=== PATIENT | female | born 1960 | race Caucasian/White ===

== ENCOUNTER → 2018-02-24 08:06 | Outpatient (CLI) | payer OTHER, SELFPAY ==
--- NOTE | 2018-02-24 08:07 | AS_ITS ---
Renal Arterial Duplex Indications: 405.91 Unspecified renovascular hypertension. 440.1 Atherosclerosis of renal artery. Stent right renal artery 2016. IMPRESSIONS 1. Normal bilateral renal artery evaluation. 2. Right RI elevated 0.8. Complete renal arterial duplex. Duplex scan and Doppler flow study including spectral analysis, color and smith scale imaging. Height: Height: 157.5cm. Height: 62in. Weight: Weight: 69.9kg. Weight: 153.7lb. Body mass index: BMI: 28.2kg/m^2. Body surface area: BSA: 1.77m^2. Location: Vascular laboratory. Patient status: Outpatient. Tables: Arterial flow: + +--------+--------+ Location V sys V ed + +--------+--------+ Right renal - proximal 150cm/s 28.2cm/s + +--------+--------+ Right renal - mid 166cm/s 52.4cm/s + +--------+--------+ Right renal - distal 117cm/s 34.1cm/s + +--------+--------+ Left renal - proximal 75.2cm/s 17.7cm/s + +--------+--------+ Left renal - mid 113cm/s 31.2cm/s + +--------+--------+ Left renal - distal 154cm/s 44.2cm/s + +--------+--------+ Renal anatomy: + +------+------+ Left Right + +------+------+ Long axis 10.5cm 9.72cm + +------+------+ Short axis 7.06cm 7.48cm + +------+------+ Cortical thickness 1.45cm 1.49cm + +------+------+ Velocity ratios: + +-----+ V sys + +-----+ Right renal/aortic 2.2 + +-----+ Left renal/aortic 2 + +-----+ (Report amended ) Electronically signed by: Dhaval Regan [id number]
--- NOTE | 2018-02-24 08:07 | CA_ITS ---
PROCEDURE: 2-D M-mode and color Doppler study INDICATIONS FOR THE TEST: Chest pain COPD Heart Murmur Tobacco Smoking Palpitations Fatigue Syncope Edema HypertensionXDiabetes Mellitus Rheumatic Fever SOBXDOE Obesity HyperlipidemiaX Family History HD Additional History CAD,[place]OR[place],STENT PATIENT INFORMATION HEIGHT: 62 WEIGHT:154 GENDER: Female B/P:172/92 2-D/M-MODE INTERPRETATION: 2-D MEASUREMENTS OBSERVED VALUES IN CMS Right Ventricular Dimension (RVDd) 2.6 Interventricular Septum (Thickness)(IVsd) 1.1 Left Ventricular Internal Dimensions(LVIDd) 4.7 Left Ventricular Posterior Wall (Thickness)(LVPWd) 1.1 Aortic Root 2.8 Aortic Cusp Separation 1.8 Left Atrial Dimensions (LAD) 2.9 2D 1. Left atrium is qualitatively mildly enlarged, left ventricle is normal size, mild concentric left ventricular hypertrophy, visually estimated ejection fraction 55% with no regional wall motion abnormality. 2. The right atrium and right ventricle are normal size and contractility. 3. The aortic valve is minimally thickened and fibrosed. 4. The mitral and tricuspid valvular grossly normal. 5. The pulmonic valve is poorly visualized. 6. No significant pericardial effusion noted. DOPPLER INTERROGATION: Doppler interrogation of the aortic, mitral and tricuspid valvular presence of mild mitral and tricuspid regurgitation, tricuspid regurgitation jet velocity is inadequate for calculation of the right ventricular systolic pressure, grade 1 diastolic dysfunction seen with tissue Doppler evidence of raised left atrial pressure. CONCLUSION: 1. Mildly enlarged left atrium, normal left ventricular size, mild concentric left ventricular hypertrophy, visually estimated ejection fraction of 55% with no regional wall motion abnormality, grade 1 diastolic dysfunction seen with tissue Doppler evidence of raised left atrial pressure. 2. Mild mitral and tricuspid regurgitation 3. No significant pericardial effusion noted.
== END ==
PROVIDERS: PCP Nurse Practitioner; Visit Provider Internal Medicine Cardiovascular Disease
DX: I10 Essential (primary) hypertension (principal); I70.1 Atherosclerosis of renal artery; E78.5 Hyperlipidemia, unspecified; G47.33 Obstructive sleep apnea (adult) (pediatric); H53.8 Other visual disturbances; R06.09 Other forms of dyspnea; R51 Headache
CPT/HCPCS: 93306; 93976

== ENCOUNTER → 2018-11-19 07:54 | Outpatient (CLI) | payer OTHER, SELFPAY ==
--- NOTE | 2018-11-19 | CA_ITS ---
APPROVED REPORT Exam: Pharmacologic Technologist: Zuleika Eldridge Ht: 5 ft 2 in Wt: 155 lbs BSA: 1.72 m2 HR: 60 bpm BP: 116/64 mmHg Indications: Shortness of Breath on Exertion, PreOP Medical History Medications: Amlodipine,,,,, Lorazepam,,,,, Levothyroxine,,,,, Aspirin,,,,, Gabapentin,,,,, Pantoprazole,,,,, Carvedilol,,,,, CloPIdogrel,,,,, PaROXETINE,,,,, Stress Test Details Test: LEXISCAN HR Resting HR: 63 bpm Max Heart Rate (APMHR): 160 bpm Max HR Achieved: 85 bpm Target HR (85% APMHR): 136 bpm % of APMHR: 53 Recovery HR: 63 bpm BP Resting BP: 116.0/64.0 mmHg Max BP: 116.0/64.0 mmHg Recovery BP: 110.0/64.0 mmHg ECG Clinical Exercise duration: 04:00 min Highest Stage Achieved: Exercise capacity: 1.0 METs Stress ECG Conclusion Resting ECG: Normal sinus rhythm Symptoms: Mild chest discomfort, shortness of air, stomach cramps, malaise Arrhythmias/Ectopy: None ST-T Changes: No significant changes. Conclusion: Unremarkable Lexiscan stress. Myoview images reported separately. Test Summary RECOVERY 07:00 . . 63 . 110/ 64 . . REST 01:56 . . 63 . 116/ 64 . . Stage 1 . . . . . . . Myoview Injected Stage 1 01:00 . . 78 . . . . Stage 2 01:00 . . 85 . 113/ 64 . . Stage 3 01:00 . . 83 . 111/ 62 . . Stage 4 01:00 . . 81 . 90/ 63 . Stop exercise at 04:00 RECOVERY 01:00 . . 78 . 100/ 64 . . RECOVERY 02:00 . . 76 . 100/ 64 . . RECOVERY . . . . . . . chest discomfort RECOVERY 03:00 . . 68 . 108/ 65 . . RECOVERY 04:00 . . 68 . 85/ 54 . . RECOVERY 05:00 . . 66 . 100/ 59 . . RECOVERY 06:00 . . 66 . 99/ 63 . . RECOVERY 07:00 . . 63 . 110/ 64 . . RECOVERY 07:20 . . 66 . 110/ 64 . . Electronically signed by : Jv Lewis, 11/19/2018 20:53:39
--- NOTE | 2018-11-19 07:56 | NM_ITS ---
APPROVED REPORT Exam: Nuclear Stress Test Indication: pre-op, sob, htn Patient Location: Outpatient Stress Tech: Zuleika Eldridge [place] Tech:Sanjuanita PradoGAEL RT(R)(N) Ht: 5 ft 2 in Wt: 155 lbs Bra Size: 36c HR: 60 bpm BP: 116/64 mmHg BSA: 1.72 m2 BMI: 28.3 History: pre-op, sob, htn Procedure: Patient received a 0.4 mg of intravenous Lexiscan, resting heart rate 60 bpm, resting blood pressure 116/64 mmHg, with Lexiscan maximum heart rate achived was 85 bpm which is Less than 85 % of the maximum predicted heart rate and blood pressure was 113/64 mmHg. mild chest discomfort Electrocardiogram Resting electrocardiogram showed sinus rhythm, with Lexiscan there is less than 1.[address] segment depression noted from the baseline EKG. The EKG portion of the Lexiscan Myoview is nondiagnostic. Cardiac Stress and Resting SPECT Images: Cardiac Stress and Resting SPECT images were obtained using technetium 99m Myoview 30.0 mCi stress and 10.37 mCi at rest. Gated SPECT with analysis of segmental wall motion and calculation of the ejection fraction also done. Cardiac stress and resting SPECT images show uniform myocardial activity without segmental perfusion abnormality, computer derived ejection fraction is over 65% with no regional wall motion abnormality, right ventricle is normal size and contractility. Conclusion: 1. The EKG portion of the Lexiscan Myoview is nondiagnostic. 2. No scintigraphic evidence of reversible ischemia seen, computer derived ejection fraction is over 65% with no regional wall motion abnormality, right ventricle is normal size and contractility. 3. Normal Lexiscan Myoview study. Electronically signed by : Jv Lewis, 11/19/2018 20:55:28
== END ==
PROVIDERS: PCP Nurse Practitioner; Visit Provider Physician Assistant
DX: Z01.810 Encounter for preprocedural cardiovascular examination (principal); E78.5 Hyperlipidemia, unspecified; I10 Essential (primary) hypertension; I51.89 Other ill-defined heart diseases; I70.1 Atherosclerosis of renal artery; I73.9 Peripheral vascular disease, unspecified; I77.3 Arterial fibromuscular dysplasia
CPT/HCPCS: 78452; 93017; A9502; J2785

== ENCOUNTER → 2021-03-06 12:28 | Outpatient (CLI) | payer OTHER, SELFPAY ==
[2021-03-06 12:57] LABS: Basophils # 0.1 K/mm3 (0-0.2); Basophils % 1.6 % (0.1-2.0); Eosinophils # 0.3 K/mm3 (0.0-0.4); Eosinophils % 4.4 % (0.1-12.0); Hematocrit 42.6 % (37.0-47.0); Hemoglobin 13.4 g/dL (12.2-16.2); Lymphocytes # 1.4 K/mm3 (0.7-4.5); Lymphocytes % 23.6 % (10-50); Mean Corpuscular HGB Conc 31.5 g/dL (31.8-35.4); Mean Corpuscular Hemoglobin 30.5 pg (27.0-31.2); Mean Platelet Volume 8.2 fl (7.4-10.4); Monocytes # 0.2 K/mm3 (0.1-1.0); Monocytes % 3.5 % (1.7-9.3); Neutrophils % 66.9 % (37.0-80.0); Platelet Count 244 K/mm3 (142-424); Red Cell Distribution Width 14.2 % (11.5-17.5)
[2021-03-06 13:36] LABS: Alanine Aminotransferase 12 U/L (12-78); Albumin Level 2.9 g/dl (3.5-5.0); Alkaline Phosphatase 95 U/L (38-126); Anion Gap 5.8 mEq/L (5-15); Aspartate Amino Transferase 23 U/L (14-36); Bilirubin,Indirect 0.3 mg/dL (0.0-0.9); Bilirubin,Total 0.3 mg/dl (0.2-1.3); Bilirubin,Unconjugated 0.2 mg/dL (0.0-1.1); Blood Urea Nitrogen 6 mg/dl (7-17); Calcium 8.2 mg/dl (8.4-10.2); Carbon Dioxide 30 mmol/L (22.0-30.0); Chloride 107 mmol/L (98-107); Cholesterol 148 mg/dl (140-200); Estimated Glomerular Filt Rate 101 ml/min (>60); GFR (African American) 123 ML/MIN (>60); Glucose 76 mg/dl (74-100); HDL Cholesterol 50 mg/dl (40-60); Potassium 3.8 mmoL/L (3.5-5.1); Sodium 139 mmol/L (136-145); Total Protein,Serum 4.8 g/dl (6.3-8.2); Triglycerides 167 mg/dl (30-150); VLDL Cholesterol 33 mg/dL (0-40)
--- NOTE | 2021-03-06 13:37 | CT_ITS ---
FINAL REPORT TECHNIQUE: Pre-and postcontrast images of the abdomen were performed by computed tomography. Extensive 3-D reconstruction images were performed. A CTA was performed. This study was performed with techniques to keep radiation doses as low as reasonably achievable (ALARA). Individualized dose reduction techniques using automated exposure control or adjustment of mA and/or kV according to the patient''s size were employed. CLINICAL HISTORY: wt loss/abdominal pain FINDINGS: ABDOMEN: The lung bases are clear. Precontrast images demonstrate no evidence of nephrolithiasis. Gallbladder is present. No adrenal masses are identified. The liver, spleen and pancreas are unremarkable. There is moderate fluid throughout the colon. CTA: The abdominal aorta is proper caliber. There is abnormal calcification at the origin of the celiac axis. The SMA and JUSTIN are patent. There is no significant stenosis or calcification. There is a right renal artery stent which appears patent. Calcification is seen at the origin of the left renal artery which appears patent. IMPRESSION: Abnormal calcification at the origin of the celiac axis. Patent right renal artery stent. Calcification at origin of patent left renal artery. Reviewed, Interpreted and Dictated by Yousuf Hall MD Transcribed by Pallavi Mcfarland Authenticated by Yousuf Hall MD on 03/06/2021 04:06:49 PM [facility]
[2021-03-06 13:47] LABS: Direct LDL Cholesterol 72.03 mg/dL (100-129)
[2021-03-06 13:54] LABS: Free T4 (Free Thyroxine) 0.88 ng/dl (0.78-2.19)
[2021-03-06 14:07] LABS: Thyroid Stimulating Hormone 4.53 uIU/mL (0.465-4.68)
== END ==
PROVIDERS: PCP Nurse Practitioner; Visit Provider Internal Medicine
DX: R10.9 Unspecified abdominal pain (principal); R63.4 Abnormal weight loss; I10 Essential (primary) hypertension; I51.89 Other ill-defined heart diseases; I70.1 Atherosclerosis of renal artery; I73.9 Peripheral vascular disease, unspecified; I77.3 Arterial fibromuscular dysplasia; E78.49 Other hyperlipidemia
CPT/HCPCS: 36415; 74175; 80048; 80061; 80076; 84439; 84443; 85025; Q9967

== ENCOUNTER → 2021-03-08 12:10 | Outpatient (CLI) | payer OTHER, SELFPAY | PROVIDERS: PCP Nurse Practitioner; Visit Provider Internal Medicine | DX: Z01.812 Encounter for preprocedural laboratory examination (principal); Z11.52 Encounter for screening for COVID-19; I10 Essential (primary) hypertension; I51.89 Other ill-defined heart diseases; E78.49 Other hyperlipidemia; I70.1 Atherosclerosis of renal artery; I73.9 Peripheral vascular disease, unspecified; I77.1 Stricture of artery; I77.3 Arterial fibromuscular dysplasia; K52.9 Noninfective gastroenteritis and colitis, unspecified; R10.84 Generalized abdominal pain; R63.4 Abnormal weight loss | CPT/HCPCS: C9803; U0003; U0005 ==

== ENCOUNTER 2021-03-09 08:28 | Day surgery (SDC) | payer OTHER, SELFPAY ==
[2021-03-09] VITALS (11 sets, daily range): BP systolic 106–145; BP diastolic 40–96; PULSE 59–78; RESP 16–20; TEMP 36.4–36.9; O2SAT 92–98; BMI 23.9
--- NOTE | 2021-03-09 07:05 | IR_ITS ---
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 COMPLICATIONS None Estimated Blood Loss: Less than 10 mls TECHNIQUE 1% lidocaine used to anesthetize the right anterior aspect of the right wrist. The right radial artery was accessed via the central technique and an arterial cocktail using 5000U heparin, 2.5 mg verapamil, 1mg lidocaine and 800mcg nitroglycerin into the right radial sheath intra-arterially. A 23 cm hydrophilic sheath was then used to to the small artery not readily excepting the multipurpose catheter. After the long sheath was placed a multipurpose catheter was used to perform selective angiography of the SMA celiac artery and bilateral renal arteries. 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 Standard therapy for ischemic vascular disease with avoidance of tobacco products and risk factor modification Electronically signed by : Andre Sanford MD 03/09/2021 12:13:13
== END 2021-03-09 13:55 | disposition home or self-care (01) ==
LOC: CATHLAB 08:30
PROVIDERS: PCP Nurse Practitioner; Visit Provider Internal Medicine
DX: I70.1 Atherosclerosis of renal artery (principal); I77.1 Stricture of artery; I10 Essential (primary) hypertension; Z95.5 Presence of coronary angioplasty implant and graft; E78.49 Other hyperlipidemia; I73.9 Peripheral vascular disease, unspecified; I77.3 Arterial fibromuscular dysplasia; R10.84 Generalized abdominal pain; R93.5 Abnormal findings on diagnostic imaging of other abdominal regions, including retroperitoneum
CPT/HCPCS: 36245; 36252; 75726; 99152; 99153; C1725; C1769; J1644; Q9967

== ENCOUNTER → 2022-02-23 11:01 | Outpatient (CLI) | payer OTHER, SELFPAY ==
--- NOTE | 2022-02-23 11:11 | CA_ITS ---
APPROVED REPORT EXAM: Comprehensive 2D, Doppler, and color-flow Echocardiogram Pediatric Neuropsychologist: Chantel Oropeza RT(R) Ht: 5 ft 2 in Wt: 160lbs BSA: 1.74 BP: 107/58 mmHg Indications: CP, fatigue, HTN, SOB, hyperlipidemia, SOB, PAD, PVD, DD, HTN. 2D Dimensions LVOT 1.96 cm (M/F) 1.5-2.5 LA Volume 20.80 mL LA Volume Index 11.95 mL/m2 (M/F) 16-34 M-Mode Dimensions RVDd 2.50 cm (0.9-2.6) LA Diam 3.44 cm (1.9-4.0) LVDd 4.94 cm (3.5-5.7) Ao Diam 2.58 cm (2.0-3.7) LVDs 3.69 cm (3.5-5.7) IVSd 0.54 cm (0.6-1.1) PWd 0.86 cm (0.6-1.1) EF (Teich) 49.70% FS 25.30% EDV (Teich) 115.00 mL ESV (Teich) 57.80 mL LV Diastology E Decel Time 213.00 (160-240 msec) E/A Ratio 1.0 MED E' 6.50 (< 7 cm/sec) E'/MED E' Ratio 12.15 (>14) LAT E' 4.70 (<10 cm/sec) E/LAT E' Ratio 16.81 (>14) Mitral Valve MV E Max Craig. 79.00 (40-130 cm/s) MV A Velocity 82.00 (40-130 cm/s) E/A Ratio 0.97 MV Decel. Time 213.00 (160-240 ms) MV PHT 62.00 ms Left Ventricle Left atrium is mildly enlarged, left ventricle is normal size mild concentric left ventricular hypertrophy, estimated ejection fraction 55% with no regional wall motion abnormality, grade 1 diastolic dysfunction seen without tissue Doppler evidence of reduced left atrial pressure. Right Ventricle Right atrium and right ventricle are normal size and contractility. Aortic Valve Aortic valve is minimally thickened and fibrosed there is no aortic stenosis aortic insufficiency. Mitral Valve Mitral valve is grossly normal, there is trace mitral regurgitation. Tricuspid Valve Tricuspid grossly normal, there is trace tricuspid regurgitation, tricuspid regurgitation jet velocity is inadequate for calculation of the right ventricular systolic pressure. Pulmonic Valve Pulmonic valve is poorly visualized. Great Vessels Aortic root is normal size. Inferior vena cava is normal size with normal inspiratory collapse. Pericardium No significant pericardial effusion noted. Conclusion 1. In the left atrium, normal left ventricular size mild concentric left ventricular hypertrophy, estimated ejection fraction 55% with no regional wall motion abnormality, grade 1 diastolic dysfunction seen without tissue Doppler evidence of raise left atrial pressure. 2. Trace mitral and tricuspid regurgitation. 3. No significant pericardial effusion. 4. Inferior vena cava is normal size with normal inspiratory collapse. Electronically signed by : Jv Lewis MD 02/23/2022 13:41:11
--- NOTE | 2022-02-23 11:42 | CA_ITS ---
APPROVED REPORT Exam: Pharmacologic Technologist: Camille Fair, Ht: 5 ft 2 in Wt: 161 lbs BSA: 1.74 m2 HR: 66 bpm BP: 159/71 mmHg Rhythm: NSR Medical History Medical History: HTN, Hyperlipidemia Medications: Levothyroxine,,,,, Aspirin,,,,, Gabapentin,,,,, Losartan,,,,, Pantoprazole,,,,, Atorvastatin,,,,, CloPIdogrel,,,,, PaROXETINE,,,,, BisOPROLOL Fumarate,,,,, Budesonide,,,,, ClonAZapam,,,,, FOLONIC PLUS,,,,, Allergies: No known drug allergies Cardiac Risk Factors: HTN, Hyperlipidemia Stress Test Details Test: LEXISCAN HR Resting HR: 67 bpm Max Heart Rate (APMHR): 157.353597 bpm Max HR Achieved: 84 bpm Target HR (85% APMHR): 133.887873 bpm % of APMHR: 53.50 Recovery HR: 71 bpm BP Max BP: 162/72 mmHg Recovery BP: 161.0/71.0 mmHg ECG Resting ECG: NSR Clinical Reason for Termination: Completed Protocol Exercise duration: 04:01 min Highest Stage Achieved: Exercise capacity: 1.0 METs Stress ECG Conclusion PT UNABLE TO WALK BEYONG STAGE I. HIGH RISK FOR FALLING. SWITCHED TO LEXISCAN NO CP <1.[address] SEGMENT CHANGES NON-DIAGNOSTIC Test Summary REST 01:03 . . 67 . . . . Stage 1 01:00 . . 83 . . . . Stage 2 01:00 . . 80 . 157/ 71 . . Stage 3 01:00 . . 77 . 149/ 77 . . Stage 4 01:00 . . 73 . 162/ 72 . . Stage 4 01:01 . . 73 . 162/ 72 . Stop exercise at 04:01 RECOVERY 01:00 . . 72 . . . . RECOVERY 01:34 . . 71 . 161/ 71 . . Electronically signed by : Jv Lewis MD 02/23/2022 14:56:52
--- NOTE | 2022-02-23 11:42 | NM_ITS ---
APPROVED REPORT Exam: Nuclear Stress Test Indication: chest pain..short of breath..fatigue Patient Location: Outpatient Stress Tech: Camille Fair [place] Tech:Sanjuanita Prado GAEL RT(R)(N) Ht: 5 ft 2 in Wt: 160 lbs Bra Size: 32dd HR: 67 bpm BP: 159/68 mmHg BSA: 1.74 m2 TID: 0.96 BMI: 29.2 History: chest pain..short of breath..fatigue Procedure: Patient received a 0.4 mg of intravenous Lexiscan, resting heart rate 67 bpm, resting blood pressure 159/68 mmHg, with Lexiscan maximum heart rate achived was 84 bpm which is Less than 85 % of the maximum predicted heart rate and blood pressure was 162/72 mmHg. Electrocardiogram Resting electrocardiogram shows sinus rhythm nonspecific ST-T changes, with Lexiscan there is less than 1.[address] segment depression noted from the baseline EKG. The EKG portion of the Lexiscan is nondiagnostic. Cardiac Stress and Resting SPECT Images: Cardiac Stress and Resting SPECT images were obtained using technetium 99m Myoview 31.4 mCi stress and 10.79 mCi at rest. Gated SPECT analysis of segmental wall motion and calculation of the ejection fraction also done. Prone images were also obtained. Cardiac stress and resting SPECT images show uniform myocardial activity without segmental perfusion abnormality, computer derived ejection fraction is 63% with no regional wall motion abnormality, right ventricle is normal size and contractility. Conclusion: 1. The EKG portion of the Lexiscan is nondiagnostic. 2. No scintigraphic evidence of reversible ischemia seen, computer derived ejection fraction 63% with no regional wall motion abnormality, right ventricle is normal size and contractility. 3. Normal Lexiscan Myoview study. Electronically signed by : Jv Lewis MD 02/23/2022 14:59:14
== END ==
PROVIDERS: PCP Nurse Practitioner Family; Visit Provider Nurse Practitioner Family
DX: R06.02 Shortness of breath (principal); R07.9 Chest pain, unspecified
CPT/HCPCS: 78452; 93017; 93306; A9502; J2785

== ENCOUNTER 2022-08-30 12:28 | Day surgery (SDC) | payer OTHER, SELFPAY ==
[2022-08-27 11:14] VITALS: BMI 31.8
[2022-08-30 12:56] VITALS: BP 122/81; PULSE 58; RESP 18; TEMP 36.1; O2SAT 96
[2022-08-30 12:59] LABS: POC Glucose,Bedside 111 (70-110)
--- NOTE | 2022-08-30 13:35 | EXP.ANES.CKL ---
[facility] Disclaimer: The information contained in this section may have been updated after the patient was seen, as this information can be updated by other users. Medical History Chest pain Diastolic dysfunction Esophageal spasm Fatigue Fibromuscular dysplasia of renal artery HLD (hyperlipidemia) HTN (hypertension) Nausea PAD (peripheral artery disease) ROM (renal artery stenosis) Skin rash SOB (shortness of breath) on exertion Vomiting Surgical History History of carpal tunnel release of both wrists History of hysterectomy Family History Other Family history of cancer Family history of diabetes mellitus type II Family history of stroke Social History Smoking Status: Former smoker quit date: 02/15/22 alcohol intake: former substance use type: denies use current occupational status: unemployed and retired Travel in the last 8 weeks: Inside the [place] household members: spouse and children housing: house lives independently: No marital status: education level: high school service: No current occupational exposures/hazards: No caffeine: Yes special [place] needs: No agree to transfusion: No do you feel safe at home: Yes victim of physical abuse: No victim of emotional abuse: No victim of sexual abuse: No would you like helpful sources: No [facility] Anesthesia Checklist Patient Identification Patient Identification: Arm Band and Verbal (Name & ) Structural Data Admitted From: Home Planned Operative Procedure/s: EGD Consent for Planned Operative Procedure(s) Verified: Yes NPO Status Verified Time NPO: 07:30 Airway Assessment C-Spine Mobility Assessed: Yes TMJ Mobility Assessed: Yes Dentition: Edentulous Neurological Assessment Level of Consciousness: Awake Hx Seizures: No Numbness or tingling in extremities: No Anesthesia Plan Anesthesia Risk discussed: Yes Anesthesia Plan: Verified ASA Class: III Anesthesia Type: MAC
[2022-08-30 14:11] VITALS: O2SAT 99
[2022-08-30 14:27] VITALS: BP 113/63; PULSE 58; RESP 18; TEMP 36.2; O2SAT 95
--- NOTE | 2022-08-30 14:27 | HMH.SCOPE ---
Procedure: Date: 08/30/22 Patient Date of :: 1960 Procedure Performed:: EGD & biopsy with bougie dilation Indications:: Dysphagia Performing Provider:: Goran Alegria MD Referring Provider:: Santa Alegria APRN Sedation:: Propofol Procedure:: The gastroscope was gently passed through the incisoral orifice into the oral cavity and under direct visualization the esophagus was intubated. The endoscope was passed down the esophagus, through the stomach, and into the duodenum. Color, texture, mucosa, and anatomy of the esophagus, stomach, and duodenum were carefully examined with the scope. Findings:: Oropharynx: normal Esophagus: normal, dilated with 58F bougie dilator EG Junction: intact at 40 cm Cardia: normal Fundus: normal Body: normal Antrum: normal Duodenal bulb: duodenitis noted, biopsied Duodenum (second and third portion): normal Impression: Symptomatic dysphagia treated with bougie dilation Duodenitis Specimens:: Duodenum Recommendations:: Repeat EGd & Dilation in about THREE years or so, sooner if clinically indicated. Complications:: None Estimated blood obtained (mL): 0 Colonoscopy Component Colonoscopy Component Was a colonoscopy performed during today's procedure?: No
[2022-08-30 14:37] VITALS: BP 124/58; PULSE 59; RESP 18; TEMP 36.2; O2SAT 95
[2022-08-30 14:47] VITALS: BP 114/66; PULSE 59; RESP 18; TEMP 36.3; O2SAT 94
[2022-08-30 14:57] VITALS: BP 115/66; PULSE 58; RESP 18; TEMP 36.2; O2SAT 95
== END 2022-08-30 14:57 | disposition home or self-care (01) ==
PROVIDERS: PCP Nurse Practitioner Family; Visit Provider Internal Medicine Gastroenterology
PROC: 0DJ08ZZ Inspection of Upper Intestinal Tract, Via Natural or Artificial Opening Endoscopic (ICD-10-PCS; CPT 43235; principal; 2022-08-30 13:30)
DX: Q40.2 Other specified congenital malformations of stomach (principal); R13.10 Dysphagia, unspecified; K29.80 Duodenitis without bleeding
CPT/HCPCS: 43248; 43239; 82962

== ENCOUNTER 2023-06-05 14:28 | Outpatient (CLI) | payer OTHER, SELFPAY ==
[2023-06-05 15:02] LABS: Basophils # 0.1 K/mm3 (0-0.2); Basophils % 1.1 % (0.1-2.0); Eosinophils # 0.2 K/mm3 (0.0-0.4); Hematocrit 39.6 % (37.0-47.0); Hemoglobin 12.8 g/dL (12.2-16.2); Lymphocytes # 1.7 K/mm3 (0.7-4.5); Lymphocytes % 27.5 % (10-50); Mean Corpuscular HGB Conc 32.3 g/dL (31.8-35.4); Mean Corpuscular Hemoglobin 30.2 pg (27.0-31.2); Mean Corpuscular Volume 93.6 fl (81-99); Mean Platelet Volume 8.5 fl (7.4-10.4); Monocytes # 0.3 K/mm3 (0.1-1.0); Monocytes % 4.7 % (1.7-9.3); Neutrophils % 63.7 % (37.0-80.0); Platelet Count 225 K/mm3 (142-424); Red Blood Count 4.23 M/mm3 (4.20-5.40); Red Cell Distribution Width 15.3 % (11.5-17.5); White Blood Count 6.3 K/mm3 (4.8-10.8)
[2023-06-05 15:40] LABS: Chloride 108 mmol/L (98-107); Potassium 4.4 mmoL/L (3.5-5.1); Sodium 139 mmol/L (136-145)
[2023-06-05 15:42] LABS: Blood Urea Nitrogen 7 mg/dl (7-17); Estimated Glomerular Filt Rate 56 ml/min (>60); GFR (African American) 68 ML/MIN (>60)
[2023-06-05 15:43] LABS: Alanine Aminotransferase 24 U/L (12-78); Albumin Level 3.6 g/dl (3.5-5.0); Alkaline Phosphatase 124 U/L (38-126); Anion Gap 8.4 mEq/L (5-15); Aspartate Amino Transferase 29 U/L (14-36); Bilirubin,Direct 0.4 mg/dl (0.0-0.4); Bilirubin,Total 0.4 mg/dl (0.2-1.3); Calcium 8.7 mg/dl (8.4-10.2); Carbon Dioxide 27 mmol/L (22.0-30.0); Cholesterol 202 mg/dl (140-200); Glucose 96 mg/dl (74-100); Magnesium 1.8 mg/dl (1.6-2.3); Total Protein,Serum 5.7 g/dl (6.3-8.2); Triglycerides 171 mg/dl (30-150); VLDL Cholesterol 34 mg/dL (0-40)
[2023-06-05 15:44] LABS: Chol/HDL Ratio 4.2 (1-3.5); HDL Cholesterol 48 mg/dl (40-60)
[2023-06-05 15:54] LABS: Direct LDL Cholesterol 97.53 mg/dL (100-129)
[2023-06-05 15:58] LABS: Free T4 (Free Thyroxine) 1.14 ng/dl (0.78-2.19)
[2023-06-05 16:14] LABS: Thyroid Stimulating Hormone 3.38 uIU/mL (0.465-4.68)
== END 2023-06-05 23:59 | disposition home or self-care (01) ==
LOC: LAB 14:30
PROVIDERS: Visit Provider Nurse Practitioner
DX: R07.9 Chest pain, unspecified (principal); R06.02 Shortness of breath; I51.89 Other ill-defined heart diseases
CPT/HCPCS: 36415; 80048; 80061; 80076; 83735; 84439; 84443; 85025

== ENCOUNTER 2023-06-12 10:27 | Outpatient (CLI) | payer OTHER, SELFPAY ==
--- NOTE | 2023-06-12 10:28 | NM_ITS ---
APPROVED REPORT Exam: Nuclear Stress Test Indication: HTN, HYPERLIPIDEMIA, TOB USE, FM HX, C.P., SOB, DIZZINESS, FATIGUE Patient Location: Outpatient Stress Tech: Zuleika Eldridge [place] Tech:Christal Bakrer, ARRT, RT (R)(N) Ht: 5 ft 2 in Wt: 172 lbs Bra Size: DD HR: 58 bpm BP: 161/69 mmHg BSA: 1.79 m2 Rhythm: NSR TID: 1.31 BMI: 31.4 History: HTN, HYPERLIPIDEMIA, TOB USE, FM HX, C.P., SOB, DIZZINESS, FATIGUE Procedure: Patient received 0.4 mg of intravenous Lexiscan, resting heart rate 58 bpm, resting blood pressure 161/69 mmHg, with Lexiscan maximum heart rate achieved was 77 bpm which is % of the maximum predicted heart rate and blood pressure was 202/90 mmHg. With Lexiscan, patient denied any complaint of chest pain. Cardiac Stress and Resting SPECT Images: Cardiac Stress and Resting SPECT images were obtained using technetium 99m Myoview 30.8 mCi stress and 10.31 mCi at rest. Resting and stress imaging in supine and prone positions demonstrate a medium-sized, moderate, partially reversible perfusion defect in the anterior and anterolateral LV rapp. There is also increased transient ischemic dilatation ratio (TID 1.31), suggestive of possible multivessel disease or balanced ischemia. Gated imaging demonstrates normal global LV systolic function. There is mild hypokinesis of the basal anterior LV wall. LVEF is calculated at 56%. Conclusion: Medium-sized, moderate, partially reversible perfusion defect in the anterior and anterolateral LV rapp. Increased transient ischemic dilatation ratio (TID 1.31), suggestive of possible multivessel disease or balanced ischemia. Gated imaging demonstrates normal global LV systolic function. There is mild hypokinesis of the basal anterior LV wall. LVEF is calculated at 56%. Electronically signed by : Emma Maravilla MD 06/16/2023 16:14:00
[2023-06-12] MEDS: SODIUM CHLORIDE 0.9% 10ML SYR (RAD ONLY) 10 ML IV ×2 (11:40→13:00)
--- NOTE | 2023-06-12 11:43 | CA_ITS ---
APPROVED REPORT EXAM: Comprehensive 2D, Doppler, and color-flow Echocardiogram Managing Partner: Maricel Thakkar CRT Ht: 5 ft 2 in Wt: 173lbs BSA: 1.80 BP: 119/96 mmHg Indications: Chest Pain, Shortness of Breath, Diabetes, Hyperlipidemia, Hypertension/HDD, ROM 2D Dimensions LA Volume 33.50 mL LA Volume Index 18.20 mL/m2 (M/F) 16-34 M-Mode Dimensions RVDd 2.28 cm (0.9-2.6) LA Diam 3.84 cm (1.9-4.0) LVDd 4.31 cm (3.5-5.7) LVDs 2.63 cm (3.5-5.7) IVSd 1.84 cm (0.6-1.1) PWd 0.84 cm (0.6-1.1) EF (Teich) 69.70% FS 39.00% EDV (Teich) 83.50 mL TAPSE 1.91 (<1.7) ESV (Teich) 25.30 mL LV Diastology E Decel Time 247 (160-240 msec) E/A Ratio 0.96 MED A' 10.20 cm/s LAT A' 8.60 cm/s Aortic Valve AO Peak GR. 7.00 mmHg Mitral Valve MV A Velocity 91.0 (40-130 cm/s) E/A Ratio 0.96 Pulmonary Valve PV Peak Velocity 129.0 (50-150 cm/s) Tricuspid Valve TR P. Velocity 202.00 cm/s RAP Estimate 10.00 mmHg RVSP 26.40 mmHg Left Ventricle The left ventricle is normal size. The left ventricular systolic function is normal. The left ventricular ejection fraction is within the normal range. There is increased LV wall thickness. There is normal LV segmental wall motion. The left ventricular diastolic function is normal. LVEF is 55%. Right Ventricle The right ventricle is normal size. The right ventricular systolic function is normal. Atria Left atrium is mildly dilated. The right atrium size is normal. There is no Doppler evidence of interatrial shunt. Aortic Valve The aortic valve opens well. There is no aortic valvular stenosis. No aortic regurgitation is present. Mitral Valve The mitral valve is normal in structure. No evidence of mitral valve stenosis. Mild mitral regurgitation. Tricuspid Valve The tricuspid valve leaflets are thin and pliable. Trace tricuspid regurgitation. There is insufficient TR jet to estimate RVSP. Pulmonic Valve The pulmonary valve is normal in structure. Trace pulmonic regurgitation. Great Vessels The aortic root is normal in size. The ascending aorta is normal in size. IVC is normal in size and collapses >50% with inspiration. Pericardium There is no pericardial effusion. Other Information Study Quality: Fair Conclusion Normal biventricular systolic function. Mild LA dilation. Mild MR. Electronically signed by : Emma Maravilla MD 06/16/2023 18:45:30
[2023-06-12] MEDS: REGADENOSON 0.4MG/5ML SYRINGE 0.400000000000000022 MG IV (13:00)
[2023-06-12] MEDS: ISOTOPE MYOVIEW (PER STUDY) 1 DOSE IV (13:20)
--- NOTE | 2023-06-12 14:20 | CA_ITS ---
APPROVED REPORT Exam: Pharmacologic Technologist: Zuleika Eldridge Ht: 5 ft 2 in Wt: 173 lbs BSA: 1.80 m2 HR: 59 bpm BP: 161/69 mmHg Rhythm: NSR Indications: Shortness of Air, chest pain Medical History Medications: Levothyroxine,,,,, Aspirin,,,,, Gabapentin,,,,, Losartan,,,,, Atorvastatin,,,,, ClonAZEPAM,,,,, MeLOXICAM,,,,, Diclofenac,,,,, Alendonate,,,,, BisOPROLOL,,,,, Ventolin,,,,, PaXIL,,,,, Stress Test Details Test: LEXISCAN HR Resting HR: 58 bpm Max Heart Rate (APMHR): 156 bpm Max HR Achieved: 77 bpm Target HR (85% APMHR): 133 bpm % of APMHR: 49 Recovery HR: 68 bpm BP Resting BP: 161.0/69.0 mmHg Max BP: 202.0/90.0 mmHg Recovery BP: 202.0/88.0 mmHg ECG Resting ECG: Normal sinus rhythm Stress ECG: No significant ST changes Arrhythmia: None Clinical Exercise duration: 04:00 min Highest Stage Achieved: Exercise capacity: 1.0 METs Stress ECG Conclusion Clonidine 0.1 mg PO x one dose. One hour later, blood pressure 182/88. Symptoms: Nausea, stomach cramps, mild shortness of air. No chest pain. Arrhythmias/Ectopy: None ST-T Changes: No significant ST changes. Conclusion: Unremarkable Lexiscan stress. Myoview images reported separately. Of note, the patient's BP was markedly elevated. Patient declined ER visit, but will closely monitor blood pressure at home and notify her health care provider, if it remains elevated. Test Summary REST . . . . . . . Resting REST 04:05 . . 58 . 161/ 69 . . Stage 1 . . . . . . . Myoview Injected Stage 1 01:00 . . 70 . . . . Stage 2 01:00 . . 76 . 179/ 82 . . Stage 3 01:00 . . 76 . 196/ 89 . . Stage 4 01:00 . . 76 . 192/ 94 . Stop exercise at 04:00 RECOVERY 01:00 . . 74 . 202/ 90 . . RECOVERY 02:00 . . 75 . . . RECOVERY 03:00 . . 72 . . . RECOVERY 04:00 . . 71 . . . RECOVERY 05:00 . . 71 . . . RECOVERY 06:00 . . 70 . . . RECOVERY 07:00 . . 67 . . . RECOVERY 08:00 . . . . . RECOVERY 09:00 . . 69 . . . RECOVERY 09:15 . . 67 . . . Electronically signed by : Emma Maravilla MD 06/16/2023 16:11:36
== END 2023-06-12 23:59 | disposition home or self-care (01) ==
LOC: RAD 10:28
PROVIDERS: Visit Provider Nurse Practitioner
DX: R07.9 Chest pain, unspecified (principal); R06.02 Shortness of breath; I51.89 Other ill-defined heart diseases
CPT/HCPCS: 78452; 93017; 93018; 93306; A9502; J2785

== ENCOUNTER 2023-06-18 07:56 | Outpatient (CLI) | payer OTHER, SELFPAY ==
--- NOTE | 2023-06-18 07:57 | CT_ITS ---
APPROVED REPORT Tab Cutting Machine Operator: CLINICAL INDICATION Chest Pain TECHNIQUE Image Acquisition: A 128 slice MDCT scanner (Cyprotexa View) was used for data acquisition. A noncontrast coronary calcium scan was performed. A CT attenuation threshold of 130 Hounsfield units (HU) was used for the detection of calcium in contiguous voxels of 1 sq mm in area to be counted as individual lesions. Bolus tracking in the ascending aorta with a threshold of 180 HU was performed. Immediately afterwards, ECG synchronized cardiac CT was then performed from the cardiac base to apex using retrospective gating with ECG tube current modulation. A total of 85 mL of Isovue 370 mg/mL contrast medium was administered at 5 mL/sec followed by a saline flush using a biphasic injection protocol. A tube voltage of 120 KVp was used. The patient received the following medications prior to the cardiac CT. 0.8 mg of sublingual nitroglycerin The average heart rate at the time of acquisition was 67 bpm and regular. Image Reconstruction Transaxial images were reconstructed at 0.67 mm slide thickness. Data was reviewed interactively on an advanced workstation capable of 2 and 3-dimensional displays in all conventional reconstruction formats, including multiplanar reformations, maximum intensity projections, curved multiplanar reformations, and volume rendered reconstructions. When applicable, selected routine images describing the relevant coronary anatomy and pathology were saved and sent to PACS. Complications None Technical Quality Overall image quality was good. Coronary artery opacification was adequate. Total DLP (Dose-Length Product) is 1431.7 mGy-cm. The reported value represents the total of one or more individual components during the CT acquisition of this date and at this time, and as such, the same value may appear in more than one CT report depending on the interpreting/reporting physicians. COMPARISON None FINDINGS CT Coronary Calcium Scoring LMA (Left Main Artery) = 84 LAD (Left Anterior Descending) = 96 LCX (Left Coronary Circumflex) = 95 RCA (Right Coronary Artery) = 2 Total Calcium Score = 277 using the AJ-130 method. The observed calcium score of 277 is at 92nd percentile for subjects of the same age, sex, and race/ethnicity. The interpretation of the calcium heart score is based on the following continuum*: 0 = no calcified plaque detected (risk of coronary artery disease is very low ??? less than 5%) 1-10 = calcium detected in extremely minimal levels (risk of coronary diseases is still low ??? less than 10%) 11-100 = mild levels of plaque detected with certainty (mild or minimal narrowing of heart arteries is likely) 101-400 = definite,at least moderate levels of plaque detected (relatively high risk of a heart attack within 3-5 years) >401-999 = extensive levels of plaque detected (high risk of heart attack, high levels of vascular disease are present, high likelihood of at least one significant coronary narrowing) *The calcium heart score quantifies the burden of coronary calcification/plaque in the coronary arteries. The calcium heart score is not able to evaluate the presence or burden of non-calcified (i.e. soft) plaque. There is also identifiable calcification in the ascending and descending thoracic aorta. Coronary CT Angiography The coronary arterial system is co-dominant. Quantitative Stenosis Grading: Left Main (LM): The left main originates normally from the left sinus of Valsalva. The LM bifurcates into the left anterior descending artery and left circumflex artery. There is calcification in the distal LM, with < 30% luminal stenosis. Left Anterior Descending (LAD) and Diagonal Branches: The LAD gives off 3 diagonal branch(es). There is mixed calcified/noncalcified plaque noted in the proximal LAD, with up to 50-70% luminal stenosis. There is no evidence of LAD-myocardial bridge. Left Circumflex (LCX) and Obtuse Marginals (OM): The LCX gives off 3 Obtuse Marginal (OM) branch(es). There is mixed calcified/noncalcified plaque noted in the proximal LCx, with < 30% luminal stenosis. Right Coronary Artery (RCA): The RCA originates normally from the right sinus of Valsalva. There is minimal calcification in the proximal RCA, with no evidence of luminal stenosis. Non-Coronary Cardiac Findings: Analysis of the left ventricular (LV) structure and function was performed after 3-D reconstruction of the LV from axial images, with user-corrected automatic contouring for assessment of LV volumes and user-defined reconstruction from oblique planes for measurement of 3-D cardiac structure and function. -The left ventricle systolic function is normal. -There is no left atrial appendage filling defect. Two right pulmonary veins and two left pulmonary veins drain normally into the left atrium. -No pericardial thickening or calcification. -Central and branch pulmonary arteries in the [id number] are unremarkable. -Thoracic aorta within the visualized thoracic aortic-branches in the [id number] is unremarkable. Extracardiac Structures No significant extra-cardiac findings. Note, however, that this study is focused on the cardiac findings. IMPRESSION -Presence of coronary calcification with an Agatston score = 277 using the AJ-130 method. -The observed calcium score of 277 is at 92nd percentile for subjects of the same age, sex, and race/ethnicity. -Multivessel atherosclerotic plaque, with presence of moderate, and possibly flow-limiting, atherosclerosis in the proximal LAD segment (50-70% luminal stenosis) -CAD-RADS 3. Management recommendations per ACC/AHA guidelines*, as clinically appropriate. *Recommendations: CAD RADS 0: Reassurance. Consider non-atherosclerotic causes of chest pain. CAD RADS 1: Consider non-atherosclerotic causes of chest pain. Consider preventive therapy and risk factor modification. CAD RADS 2: Consider non-atherosclerotic causes of chest pain. Consider preventive therapy and risk factor modification, particularly for patients with nonobstructive plaque in multiple segments. CAD RADS 3: Consider further functional testing. Consider symptom-guided anti-ischemic and preventive pharmacotherapy as well as risk factor modification per published guideline statements. CAD RADS 4A: Consider further functional testing or invasive coronary angiography with revascularization per published guideline statements. Consider symptom-guided anti-ischemic and preventive pharmacotherapy as well as risk factor modification per published guideline statements. CAD RADS 4B: Invasive coronary angiography recommended with revascularization per published guideline statements. Consider symptom-guided anti-ischemic and preventive pharmacotherapy as well as risk factor modification per published guideline statements. CAD RADS 5: Consider invasive angiography and/or viability assessment with revascularization per published guideline statements. Consider symptom-guided anti-ischemic and preventive pharmacotherapy as well as risk factor modification per published guideline statements. CRITICAL RESULT None COMMUNICATION Per this written report The coronary and cardiac findings of this CCTA were reviewed, reported, and signed by Gilbert Maravilla MD (Tin Stacker) Conclusion Electronically signed by : Emma Maravilla MD 06/20/2023 12:33:02
[2023-06-18 08:05] VITALS: BMI 31.4
[2023-06-18 08:12] VITALS: BP 144/81; PULSE 64; RESP 18; TEMP 36.6; O2SAT 96
[2023-06-18 08:25] VITALS: BP 147/86; PULSE 63; RESP 18; O2SAT 95
[2023-06-18 08:28] VITALS: BP 133/77; PULSE 66; RESP 16; O2SAT 94
[2023-06-18 08:31] VITALS: BP 110/67; PULSE 66; RESP 18; O2SAT 92
[2023-06-18 08:34] VITALS: BP 125/68; PULSE 92; RESP 18; O2SAT 92
[2023-06-18] MEDS: 0.9 % SODIUM CHLORIDE 50 ML VIAL IV (08:48)
[2023-06-18] MEDS: SODIUM CHLORIDE 0.9% 10ML SYR (RAD ONLY) 10 ML IV (08:48)
[2023-06-18] MEDS: IOPAMIDOL-370 (76%);100ML BOTTLE 85 ML IV (08:48)
[2023-06-18 08:50] VITALS: BP 104/55; PULSE 68; RESP 16; O2SAT 93
== END 2023-06-18 08:52 | disposition home or self-care (01) ==
PROVIDERS: Visit Provider Internal Medicine
DX: R07.9 Chest pain, unspecified (principal); R06.02 Shortness of breath; I70.1 Atherosclerosis of renal artery; E78.49 Other hyperlipidemia; I11.9 Hypertensive heart disease without heart failure; I73.9 Peripheral vascular disease, unspecified; R21 Rash and other nonspecific skin eruption; R93.1 Abnormal findings on diagnostic imaging of heart and coronary circulation; Z87.891 Personal history of nicotine dependence
CPT/HCPCS: 75571; 75574; Q9967

== ENCOUNTER 2023-07-04 07:57 | Day surgery (SDC) | payer OTHER, SELFPAY ==
[2023-07-04] VITALS (11 sets, daily range): BP systolic 126–150; BP diastolic 66–87; PULSE 57–66; RESP 16–147; O2SAT 92–97; BMI 31.1
--- NOTE | 2023-07-04 07:07 | IR_ITS ---
APPROVED REPORT Patient Location: Outpatient Manufacturing Software Engineer: GAEL Laguna RT (R) PROCEDURES Left heart catheterization Left ventriculogram Selective coronary angiogram INDICATION Abnormal Myoview, Abnormal CCTA, Risk factors for coronary artery disease, Angina pectoris, Informed consent was obtained prior to the procedure. COMPLICATIONS NONE Estimated Blood Loss: LESS THAN 10 ML TECHNIQUE One percent lidocaine used to anesthetize the right anterior aspect of the wrist. The right radial artery was accessed via the Seldinger technique. A 6 Citizen Of [place] sheath was placed in the right radial artery. 2.5 mg of Verapamil, 800 mcg of nitroglycerin, 1mg Lidocaine and 5000 U Heparin were given through the arterial sheath. The papa catheter was also used to perform left heart catheterization, left ventriculogram and selective coronary angiogram. At the end of the procedure the sheath was removed good hemostasis was achieved using Traclet band, patient was transferred to the postop holding area in stable condition. ANGIOGRAPHIC RESULTS The left main artery Normal The left anterior descending artery Has proximal smooth 10 to 20% stenosis with 10% stenoses along the highly tortuous mid and distal LAD The circumflex artery Dominant proximal 10% stenosis with tortuous first and second obtuse marginal arteries free of disease. Third obtuse marginal artery has 30% tandem stenoses The right coronary artery Small nondominant approximately 1 to 1.5 mm in diameter and has proximal tandem 70% stenoses The SMITH ventriculogram reveals Preserved at 60% The left ventricular end-diastolic pressure Severely elevated at 30 mmHg IMPRESSION Coronary artery disease as described above all of which is nonobstructive. The nondominant right coronary artery is too small for percutaneous intervention Normal ejection fraction Elevated LVEDP which is the likely etiology for patient's symptoms PLAN 1. Avoidance of tobacco products 2. Risk factor modification 3. Medical management for coronary disease 4. Dyspnea almost certainly stems from HFpEF 5. It may be reasonable to refer patient to pulmonology based on tobacco history Electronically signed by : Andre Sanford MD 07/04/2023 10:34:16
[2023-07-04 08:49] LABS: Basophils # 0.1 K/mm3 (0-0.2); Basophils % 1.2 % (0.1-2.0); Eosinophils # 0.2 K/mm3 (0.0-0.4); Eosinophils % 2.9 % (0.1-12.0); Hematocrit 38.2 % (37.0-47.0); Hemoglobin 12.5 g/dL (12.2-16.2); Lymphocytes # 1.7 K/mm3 (0.7-4.5); Lymphocytes % 30.8 % (10-50); Mean Corpuscular HGB Conc 32.7 g/dL (31.8-35.4); Mean Corpuscular Hemoglobin 30.5 pg (27.0-31.2); Mean Corpuscular Volume 93.3 fl (81-99); Mean Platelet Volume 8.3 fl (7.4-10.4); Monocytes # 0.3 K/mm3 (0.1-1.0); Neutrophils # 3.3 K/mm3 (1.8-7.8); Platelet Count 232 K/mm3 (142-424); Red Blood Count 4.09 M/mm3 (4.20-5.40); Red Cell Distribution Width 14.7 % (11.5-17.5); White Blood Count 5.5 K/mm3 (4.8-10.8)
[2023-07-04 09:02] LABS: Anion Gap 8.1 mEq/L (5-15); Blood Urea Nitrogen 13 mg/dl (7-17); Calcium 8.9 mg/dl (8.4-10.2); Carbon Dioxide 30 mmol/L (22.0-30.0); Chloride 100 mmol/L (98-107); Creatinine Clearance Estimated 58 mL/min (50-200); Estimated Glomerular Filt Rate 45 ml/min (>60); GFR (African American) 55 ML/MIN (>60); Glucose 117 mg/dl (74-100); Potassium 4.1 mmoL/L (3.5-5.1); Sodium 134 mmol/L (136-145)
[2023-07-04] MEDS: HEPARIN 1,000 UNITS/ML 10ML VIAL (CATH LAB) 10000 UNIT IV (10:07)
[2023-07-04] MEDS: diphenhydrAMINE 50MG/ML VIAL 50 MG IV (10:07)
[2023-07-04] MEDS: NITROGLYCERIN 800MCG/8ML SYR (CATH LAB) 800 MCG IA (10:07)
[2023-07-04] MEDS: 0.9 % SODIUM CHLORIDE 500 ML 25 ML IV (10:07)
[2023-07-04] MEDS: VERAPAMIL 2.5MG/ML 2ML VIAL 2.5 MG IV (10:07)
[2023-07-04] MEDS: HEPARIN 1,000 UNITS/500ML NS (CATH LAB) 3000 UNIT IV (10:08)
[2023-07-04] MEDS: MIDAZOLAM HCL 1MG/1ML 5ML VIAL 1 MG IV (10:24)
[2023-07-04] MEDS: FENTANYL 100MCG/2ML VIAL 50 MCG IV (10:24)
--- NOTE | 2023-07-04 13:38 | SUR.PHASEII ---
1315: Small hematoma noted when band removed. No active bleeding noted. Pressure held with telfa and 4x4s for 5 min. Tegaderm then placed over dressing. 1330: No bleeding noted on dressing. Continue with d/c.
== END 2023-07-04 13:30 | disposition home or self-care (01) ==
PROVIDERS: Visit Provider Internal Medicine
DX: I25.118 Atherosclerotic heart disease of native coronary artery with other forms of angina pectoris (principal); R94.39 Abnormal result of other cardiovascular function study; Z79.899 Other long term (current) drug therapy; I70.1 Atherosclerosis of renal artery; I10 Essential (primary) hypertension; E78.5 Hyperlipidemia, unspecified; Z87.891 Personal history of nicotine dependence; I25.83 Coronary atherosclerosis due to lipid rich plaque
CPT/HCPCS: 80048; 85025; 93458; 99152; C1725; C1769; J1644

== ENCOUNTER 2023-07-15 14:52 | Outpatient (CLI) | payer OTHER, SELFPAY ==
[2023-07-15 15:15] LABS: Basophils # 0.1 K/mm3 (0-0.2); Basophils % 1.2 % (0.1-2.0); Eosinophils # 0.2 K/mm3 (0.0-0.4); Eosinophils % 2.8 % (0.1-12.0); Hematocrit 39.6 % (37.0-47.0); Hemoglobin 13.1 g/dL (12.2-16.2); Lymphocytes # 1.7 K/mm3 (0.7-4.5); Lymphocytes % 25.5 % (10-50); Mean Corpuscular HGB Conc 33.1 g/dL (31.8-35.4); Mean Corpuscular Hemoglobin 30.5 pg (27.0-31.2); Mean Corpuscular Volume 91.9 fl (81-99); Mean Platelet Volume 8.5 fl (7.4-10.4); Monocytes # 0.4 K/mm3 (0.1-1.0); Monocytes % 5.2 % (1.7-9.3); Neutrophils # 4.4 K/mm3 (1.8-7.8); Neutrophils % 65.4 % (37.0-80.0); Platelet Count 278 K/mm3 (142-424); Red Blood Count 4.31 M/mm3 (4.20-5.40); Red Cell Distribution Width 14.7 % (11.5-17.5); White Blood Count 6.7 K/mm3 (4.8-10.8)
[2023-07-15 17:32] LABS: Chloride 95 mmol/L (98-107); Potassium 5.4 mmoL/L (3.5-5.1); Sodium 129 mmol/L (136-145)
[2023-07-15 17:35] LABS: Anion Gap 13.4 mEq/L (5-15); Blood Urea Nitrogen 24 mg/dl (7-17); Carbon Dioxide 26 mmol/L (22.0-30.0); Estimated Glomerular Filt Rate 22 ml/min (>60); GFR (African American) 27 ML/MIN (>60); Glucose 111 mg/dl (74-100)
[2023-07-15 17:36] LABS: Calcium 9.4 mg/dl (8.4-10.2)
== END 2023-07-15 23:59 | disposition home or self-care (01) ==
LOC: LAB 14:55
PROVIDERS: Visit Provider Internal Medicine
DX: K21.9 Gastro-esophageal reflux disease without esophagitis (principal); I73.9 Peripheral vascular disease, unspecified; I11.9 Hypertensive heart disease without heart failure; E78.49 Other hyperlipidemia; I70.1 Atherosclerosis of renal artery; R06.02 Shortness of breath; Z87.891 Personal history of nicotine dependence
CPT/HCPCS: 80048; 85025

== ENCOUNTER 2023-08-19 15:04 | Outpatient (CLI) | payer OTHER, SELFPAY ==
[2023-08-19 16:18] LABS: Anion Gap 9.2 mEq/L (5-15); Blood Urea Nitrogen 24 mg/dl (7-17); Calcium 9.1 mg/dl (8.4-10.2); Carbon Dioxide 23 mmol/L (22.0-30.0); Chloride 113 mmol/L (98-107); Estimated Glomerular Filt Rate 20 ml/min (>60); GFR (African American) 25 ML/MIN (>60); Glucose 96 mg/dl (74-100); Potassium 4.2 mmoL/L (3.5-5.1); Sodium 141 mmol/L (136-145)
== END 2023-08-19 23:59 | disposition home or self-care (01) ==
LOC: LAB 15:05
PROVIDERS: Visit Provider Internal Medicine
DX: R53.83 Other fatigue (principal); E11.69 Type 2 diabetes mellitus with other specified complication; I10 Essential (primary) hypertension; R06.02 Shortness of breath; R07.9 Chest pain, unspecified
CPT/HCPCS: 36415; 80048